=== PATIENT | male | born 1965 ===

== ENCOUNTER 2025-09-07 11:00 | Day surgery (SDC) | payer OTHER ==
[2025-08-30 08:53] VITALS: BP 136/93
[2025-08-30 08:54] LABS: URINE APPEARANCE Clear; URINE BILIRRUBIN Small (NEGATIVE); URINE BLOOD Negative; URINE COLOR Dark Yellow; URINE GLUCOSE Negative (NEGATIVE); URINE KETONE Negative (NEGATIVE); URINE LEUKOCYTE Negative; URINE NITRATE Negative; URINE PROTEIN Trace (NEGATIVE); URINE UROBILINOGEN 1.0 E.U./dl
[2025-08-30 08:59] LABS: URINE BACTERIA 7.1 uL (0.0-1933); URINE EPITHELIAL CELLS 2.1 uL (0.0-38.8); URINE RBC 5.1 uL (0.0-20.8); URINE WBC 2.3 uL (0.0-23.2)
[2025-08-30 09:00] LABS: BASO % 1.0 % (0.1-1.2); EOS # 0.46 (0.04-0.54); EOS % 6.5 % (0.7-7.0); LYMPH # 1.89 (1.18-3.74); LYMPH % 26.7 % (19.3-53.1); MEAN PLATELET VOLUME 9.20 fl (9.4-12.4); MONO # 0.84 (0.24-0.82); MONO % 11.9 % (4.7-12.5); NEUT # 3.80 (1.56-6.13); NEUT % 53.8 % (34.0-71.1); RED CELL DISTRIBUTION WIDTH 12.4 % (11.6-14.4)
[2025-08-30 09:06] LABS: URINE CAST 0.14 uL (0.0-1.40)
[2025-08-30 09:16] LABS: INR 1.01
[2025-08-30 09:45] LABS: BUN CREA RATIO 19.0 (7.0-25.0); CREATININE SERUM 0.83 mg/dL (0.70-1.30); GFR 95.49; GLUCOSE FASTING 94.0 mg/dL (65-100); OSMOLALITY SERUM 282.0 MOSM/KG (275-295)
[~2025-09-07] VITALS: Ht 165.1 cm; Wt 89.8 kg
[~2025-09-07 11:00] MED LIST: LIPITOR20 MG PO
[2025-09-07] MEDS ORDERED: CEFAZOLIN SODIUM 1,000 MG VIAL ONE (12:14)
[2025-09-07] MEDS ORDERED: TYLENOL ARTHRI650 MG PO (12:40)
[2025-09-07] MEDS ORDERED: BUPIVACAINE HCL 30 ML VIAL IJ ONE (13:15)
== END 2025-09-07 15:50 | disposition home or self-care (01) ==
LOC: CIR.AMB 11:00
PROVIDERS: ATTEND Surgery
DX: D17.1 Benign lipomatous neoplasm of skin and subcutaneous tissue of trunk (principal); D49.2 Neoplasm of unspecified behavior of bone, soft tissue, and skin